=== PATIENT | female | born 1945 | race Caucasian/White ===

== ENCOUNTER 2019-10-28 08:03 | Outpatient (CLI) | payer MEDICARE, OTHER, SELFPAY ==
--- NOTE | ~2019-10-28 | DEXA_ITS ---
Bone Density Report Name: Delma Banerjee Age: 73 Sex: Female Ethnicity: White Date of : 1945 Indication: postmenopausal; parental hip fracture; height loss; hysterectomy; Referring Provider: BETO ALVES Study: Bone densitometry was performed. Exam Date: October 28, 2019 Accession number: [id number] Bone Density: Region BMD T-score Z-score Classification AP Spine (L1-L4) 0.911 -1.2 1.2 Osteopenia Femoral Neck (Left) 0.597 -2.3 -0.2 Osteopenia Total Hip (Left) 0.720 -1.8 0.0 Osteopenia Total Hip Bilateral Avg 0.722 -1.8 0.0 Osteopenia Femoral Neck (Right) 0.543 -2.8 -0.6 Osteoporosis Total Hip (Right) 0.723 -1.8 0.0 Osteopenia World Health Organization criteria for BMD impression classify patients as: Normal (T-score at or above -1.0), Osteopenia (T-score between -1.0 and -2.5), or Osteoporosis (T-score at or below -2.5). 10-year Fracture Risk: FRAX not reported because: Some T-score for Spine Total or Hip Total or Femoral Neck at or below -2.5 Previous Exams: Region Exam Age BMD T-score BMD Change BMD Change Date g/cm2 vs Baseline vs Previous AP Spine(L1-L4) 10/28/2019 73 0.911 -1.2 -0.167(-15.5%) -0.089(-8.9%)* 10/23/2017 71 1.001 -0.4 -0.078(-7.2%)# 0.080(8.7%)* 10/19/2015 69 0.920 -1.2 -0.158(-14.7%) 0.006(0.6%)# 10/14/2013 67 0.915 -1.2 -0.164(-15.2%) -0.043(-4.5%)* 10/04/2011 65 0.958 -0.8 -0.120(-11.2%) -0.120(-11.2%) 09/29/2009 63 1.078 0.3 Total Hip(Left) 10/28/2019 73 0.720 -1.8 -0.244(-25.3%) -0.100(-12.2%) 10/23/2017 71 0.820 -1.0 -0.145(-15.0%) 0.011(1.3%) 10/19/2015 69 0.809 -1.1 -0.155(-16.1%) -0.012(-1.5%)# 10/14/2013 67 0.821 -1.0 -0.143(-14.8%) -0.047(-5.4%)* 10/04/2011 65 0.868 -0.6 -0.097(-10.0%) -0.097(-10.0%) 09/29/2009 63 0.964 0.2 Total Hip(Right) 10/28/2019 73 0.723 -1.8 -0.239(-24.8%) -0.115(-13.7%) 10/23/2017 71 0.838 -0.9 -0.124(-12.9%) 0.044(5.5%)* 10/19/2015 69 0.794 -1.2 -0.168(-17.4%) 0.010(1.3%)# 10/14/2013 67 0.784 -1.3 -0.178(-18.5%) -0.019(-2.4%) 10/04/2011 65 0.803 -1.1 -0.159(-16.5%) -0.159(-16.5%) 09/29/2009 63 0.962 0.2 *Denotes significance at 95% confidence level, LSC for AP Spine = 0.022 g/cm2, LSC for Total Hip = 0.027 g/cm2 Clinical Information Provided by Patient: Parent has had a hip fracture Has used the following medications: Vitamin D, Calcium Has the following medical conditions: Hysterectomy Patient maximum height was 61
--- NOTE | ~2019-10-28 | MM_ITS ---
EXAMINATION: MM screening myah BI w onel HISTORY: Screening mammogram TECHNIQUE: Craniocaudal and mediolateral oblique 3-D tomosynthesis images were obtained and synthetic 2-D images were generated. CAD analysis was submitted and interpreted. COMPARISON: 10/25/2018, 10/23/2017, 10/20/2016 bilateral digital screening mammogram examinations BREAST PARENCHYMAL COMPOSITION: There are scattered areas of fibroglandular density. FINDINGS: There is no evidence of suspicious mass, calcification, or architectural distortion to sugg est malignancy in either breast. There has been no suspicious interval change. IMPRESSION: 1. No mammographic evidence of malignancy. 2. Recommend routine screening mammography in one year. BI-RADS Category 1: Negative Reviewed, dictated and finalized at location A. LE MILL OPERATOR
== END 2019-10-28 08:04 | disposition home or self-care (01) ==
LOC: ANHIMG 08:09
PROVIDERS: PCP Internal Medicine; Visit Provider Internal Medicine
DX: Z12.31 Encounter for screening mammogram for malignant neoplasm of breast (principal); Z78.0 Asymptomatic menopausal state; M85.89 Other specified disorders of bone density and structure, multiple sites; M81.0 Age-related osteoporosis without current pathological fracture
CPT/HCPCS: 77063; 77067; 77080

== ENCOUNTER 2020-11-12 09:17 | Outpatient (CLI) | payer MEDICARE, OTHER, SELFPAY ==
--- NOTE | ~2020-11-12 | MM_ITS ---
EXAMINATION: MM screening myah BI w onel HISTORY: Screening mammogram TECHNIQUE: Craniocaudal and mediolateral oblique 3-D tomosynthesis images were obtained and synthetic 2-D images were generated. CAD analysis was submitted and interpreted. COMPARISON: 10/28/2019, 10/25/2018, 10/23/2017 bilateral digital screening mammogram examinations BREAST PARENCHYMAL COMPOSITION: There are scattered areas of fibroglandular density. FINDINGS: There is no evidence of suspicious mass, calcification, or architectural distortion to sugg est malignancy in either breast. There has been no suspicious interval change. IMPRESSION: 1. No mammographic evidence of malignancy. 2. Recommend routine screening mammography in one year. BI-RADS Category 1: Negative Reviewed, dictated and finalized at location A. ORK CABLER
== END 2020-11-12 09:18 | disposition home or self-care (01) ==
LOC: ANHIMG 09:27
PROVIDERS: PCP Internal Medicine; Visit Provider Internal Medicine
DX: Z12.31 Encounter for screening mammogram for malignant neoplasm of breast (principal)
CPT/HCPCS: 77063; 77067

== ENCOUNTER 2021-12-10 14:43 | Outpatient (CLI) | payer MEDICARE, OTHER, SELFPAY ==
--- NOTE | ~2021-12-10 | MM_ITS ---
EXAMINATION: MM screening myah BI w onel HISTORY: Screening TECHNIQUE: Craniocaudal and mediolateral oblique 3-D tomosynthesis images were obtained and synthetic 2-D images were generated. CAD analysis was submitted and interpreted. COMPARISON: Comparison to multiple prior studies sequentially, with oldest reviewed study dated 10/2016. BREAST PARENCHYMAL COMPOSITION: There are scattered areas of fibroglandular density. FINDINGS: There is no evidence of suspicious mass, calcification, or architectural distortion to sugg est malignancy in either breast. There has been no suspicious interval change. IMPRESSION: 1. No mammographic evidence of malignancy. 2. Recommend routine screening mammography in one year. BI-RADS Category 1: Negative Reviewed, dictated and finalized at location A.
== END 2021-12-10 14:44 | disposition home or self-care (01) ==
LOC: ANHIMG 14:46
PROVIDERS: PCP Internal Medicine; Visit Provider Internal Medicine
DX: Z12.31 Encounter for screening mammogram for malignant neoplasm of breast (principal)
CPT/HCPCS: 77063; 77067

== ENCOUNTER 2023-03-07 08:37 | Outpatient (CLI) | payer MEDICARE, OTHER, SELFPAY ==
--- NOTE | ~2023-03-07 | MM_ITS ---
EXAMINATION: MM screening myah BI w onel HISTORY: Screening mammogram TECHNIQUE: Craniocaudal and mediolateral oblique 3-D tomosynthesis images were obtained and synthetic 2-D images were generated. CAD analysis was submitted and interpreted. COMPARISON: 12/10/2021, 11/12/2020, 10/28/2019 bilateral screening mammogram examinations BREAST PARENCHYMAL COMPOSITION: There are scattered areas of fibroglandular density. FINDINGS: There is no evidence of suspicious mass, calcification, or architectural distortion to sugg est malignancy in either breast. There has been no suspicious interval change. IMPRESSION: 1. No mammographic evidence of malignancy. 2. Recommend routine screening mammography in one year. BI-RADS Category 1: Negative Reviewed, dictated and finalized at location A.
--- NOTE | ~2023-03-07 | DEXA_ITS ---
Bone Density Report Name: IRVIN MARRERO Age: 77 Sex: Female Ethnicity: White Date of : 1945 Indication: osteopenia; monitoring treatment; height loss; prior fracture; hysterectomy; postmenopausal Referring Provider: DELIA SCHWARTZ Study: Bone densitometry was performed. Exam Date: March 07, 2023 Accession number: [id number] Bone Density: Region BMD T-score Z-score Classification AP Spine(L1-L4) 0.984 -0.6 2.1 Normal Femoral Neck (Left) 0.576 -2.5 -0.2 Osteoporosis Total Hip (Left) 0.657 -2.3 -0.3 Osteopenia Femoral Neck (Right) 0.561 -2.6 -0.3 Osteoporosis Total Hip (Right) 0.720 -1.8 0.2 Osteopenia Total Hip Mean 0.689 -2.1 -0.1 Osteopenia World Health Organization criteria for BMD impression classify patients as: Normal (T-score at or above -1.0), Osteopenia (T-score between -1.0 and -2.5), or Osteoporosis (T-score at or below -2.5). 10-year Fracture Risk: FRAX not reported because: Some T-score for Spine Total or Hip Total or Femoral Neck at or below -2.5 Treated for osteoporosis Previous Exams: Region Exam Age BMD T-score BMD Change BMD Change Date g/cm2 vs Baseline vs Previous AP Spine (L1-L4) 03/07/2023 77 0.984 -0.6 0.069 (7.6%)# 0.073 (8.0%)* 10/28/2019 73 0.911 -1.2 -0.003 (-0.4%) -0.089 (-8.9%) 10/23/2017 71 1.001 -0.4 0.086 (9.4%)# 0.080 (8.7%)* 10/19/2015 69 0.920 -1.2 0.006 (0.6%)# 0.006 (0.6%)# 10/14/2013 67 0.915 -1.2 Total Hip(Left) 03/07/2023 77 0.657 -2.3 -0.164 (-20.0% -0.063 (-8.8%) 10/28/2019 73 0.720 -1.8 -0.101 (-12.3% -0.100 (-12.2% 10/23/2017 71 0.820 -1.0 -0.001 (-0.2%) 0.011 (1.3%) 10/19/2015 69 0.809 -1.1 -0.012 (-1.5%) -0.012 (-1.5%) 10/14/2013 67 0.821 -1.0 Total Hip(Right) 03/07/2023 77 0.720 -1.8 -0.063 (-8.1%) -0.003 (-0.4%) 10/28/2019 73 0.723 -1.8 -0.061 (-7.7%) -0.115 (-13.7% 10/23/2017 71 0.838 -0.9 0.054 (6.9%)# 0.044 (5.5%)* 10/19/2015 69 0.794 -1.2 0.010 (1.3%)# 0.010 (1.3%)# 10/14/2013 67 0.784 -1.3 *Denotes significance at 95% confidence level, LSC for AP Spine = 0.022 g/cm2, LSC for Total Hip = 0.027 g/cm2 # Denotes dissimilar scan types or analysis methods Clinical Information Provided by Patient: Has had a low trauma fracture Is being treated for osteoporosis Has used the following medications: Vitamin D, Calcium Has the following medical conditions: Hysterectomy Patient maximum height was 61 Menopause Age: 43 Does not regularly consum
== END 2023-03-07 08:38 | disposition home or self-care (01) ==
LOC: ANHIMG 08:39
PROVIDERS: PCP Family Medicine; Visit Provider Family Medicine
DX: Z12.31 Encounter for screening mammogram for malignant neoplasm of breast (principal); N95.8 Other specified menopausal and perimenopausal disorders; M81.0 Age-related osteoporosis without current pathological fracture; M85.852 Other specified disorders of bone density and structure, left thigh; M85.851 Other specified disorders of bone density and structure, right thigh
CPT/HCPCS: 77063; 77067; 77080

== ENCOUNTER 2024-01-20 09:46 | Outpatient (CLI) | payer MEDICARE, OTHER, SELFPAY ==
--- NOTE | ~2024-01-20 | DEXA_ITS ---
Bone Density Report Name: IRVIN MARRERO Age: 78 Sex: Female Ethnicity: White Date of : 1945 Indication: osteopenia; monitoring treatment; parental hip fracture; height loss; hysterectomy; Referring Provider: DELIA SCHWARTZ Study: Bone densitometry was performed. Exam Date: January 20, 2024 Accession number: [id number] Bone Density: Region BMD T-score Z-score Classification AP Spine(L1-L4) 0.998 -0.4 2.2 Normal Femoral Neck (Left) 0.557 -2.6 -0.3 Osteoporosis Total Hip (Left) 0.708 -1.9 0.1 Osteopenia Femoral Neck (Right) 0.557 -2.6 -0.3 Osteoporosis Total Hip (Right) 0.713 -1.9 0.2 Osteopenia Total Hip Mean 0.711 -1.9 0.2 Osteopenia World Health Organization criteria for BMD impression classify patients as: Normal (T-score at or above -1.0), Osteopenia (T-score between -1.0 and -2.5), or Osteoporosis (T-score at or below -2.5). 10-year Fracture Risk: FRAX not reported because: Some T-score for Spine Total or Hip Total or Femoral Neck at or below -2.5 Treated for osteoporosis Previous Exams: Region Exam Age BMD T-score BMD Change BMD Change Date g/cm2 vs Baseline vs Previous AP Spine (L1-L4) 01/20/2024 78 0.998 -0.4 0.084 (9.2%)* 0.014 (1.5%)# 03/07/2023 77 0.984 -0.6 0.069 (7.6%)# 0.073 (8.0%)* 10/28/2019 73 0.911 -1.2 -0.003 (-0.4%) -0.089 (-8.9%) 10/23/2017 71 1.001 -0.4 0.086 (9.4%)# 0.080 (8.7%)* 10/19/2015 69 0.920 -1.2 0.006 (0.6%)# 0.006 (0.6%)# 10/14/2013 67 0.915 -1.2 Total Hip(Left) 01/20/2024 78 0.708 -1.9 -0.113 (-13.8% 0.051 (7.8%)# 03/07/2023 77 0.657 -2.3 -0.164 (-20.0% -0.063 (-8.8%) 10/28/2019 73 0.720 -1.8 -0.101 (-12.3% -0.100 (-12.2% 10/23/2017 71 0.820 -1.0 -0.001 (-0.2%) 0.011 (1.3%) 10/19/2015 69 0.809 -1.1 -0.012 (-1.5%) -0.012 (-1.5%) 10/14/2013 67 0.821 -1.0 Total Hip(Right) 01/20/2024 78 0.713 -1.9 -0.071 (-9.0%) -0.007 (-1.0%) 03/07/2023 77 0.720 -1.8 -0.063 (-8.1%) -0.003 (-0.4%) 10/28/2019 73 0.723 -1.8 -0.061 (-7.7%) -0.115 (-13.7% 10/23/2017 71 0.838 -0.9 0.054 (6.9%)# 0.044 (5.5%)* 10/19/2015 69 0.794 -1.2 0.010 (1.3%)# 0.010 (1.3%)# 10/14/2013 67 0.784 -1.3 *Denotes significance at 95% confidence level, LSC for AP Spine = 0.022 g/cm2, LSC for Total Hip = 0.027 g/cm2 # Denotes dissimilar scan types or analysis methods Clinical Information Provided by Patient: Parent has had a hip fracture Is being treated for osteopor
== END 2024-01-20 09:47 | disposition home or self-care (01) ==
LOC: ANHIMG 09:53
PROVIDERS: PCP Family Medicine; Visit Provider Family Medicine
DX: N95.8 Other specified menopausal and perimenopausal disorders (principal); M81.0 Age-related osteoporosis without current pathological fracture; M85.852 Other specified disorders of bone density and structure, left thigh; M85.851 Other specified disorders of bone density and structure, right thigh
CPT/HCPCS: 77080

== ENCOUNTER 2024-03-13 13:26 | Outpatient (CLI) | payer MEDICARE, OTHER, SELFPAY ==
--- NOTE | ~2024-03-13 | MM_ITS ---
EXAMINATION: MM screening myah BI w onel HISTORY: Screening mammogram TECHNIQUE: Craniocaudal and mediolateral oblique 3-D tomosynthesis images were obtained and synthetic 2-D images were generated. CAD analysis was submitted and interpreted. COMPARISON: 03/07/2023, 12/10/2021, 11/12/2020 BREAST PARENCHYMAL COMPOSITION:Dense: The breasts are heterogeneously dense, which may obscure small masses. FINDINGS: No suspicious mass, calcification, or architectural distortion are identified in either porfirio ast to suggest malignancy. There has been no suspicious interval change. IMPRESSION: No mammographic evidence of malignancy. Recommend routine screening mammography in one year. BI-RADS Category 1: Negative Reviewed, dictated and finalized at location .
== END 2024-03-13 13:27 | disposition home or self-care (01) ==
LOC: ANHIMG 13:28
PROVIDERS: PCP Family Medicine; Visit Provider Family Medicine
DX: Z12.31 Encounter for screening mammogram for malignant neoplasm of breast (principal)
CPT/HCPCS: 77063; 77067

== ENCOUNTER 2025-04-11 09:38 | Outpatient (CLI) | payer MEDICARE, OTHER, SELFPAY ==
--- NOTE | ~2025-04-11 | MM_ITS ---
EXAMINATION: MM screening myah BI w onel HISTORY: Screening TECHNIQUE: Craniocaudal and mediolateral oblique 3-D tomosynthesis images were obtained and synthetic 2-D images were generated. CAD analysis was submitted and interpreted. COMPARISON: Comparison to multiple prior studies sequentially, with oldest reviewed study dated 03/2019. BREAST PARENCHYMAL COMPOSITION: Not dense: There are scattered areas of fibroglandular density. FINDINGS: There is no evidence of suspicious mass, calcification, or architectural distortion to sugg est malignancy in either breast. There has been no suspicious interval change. IMPRESSION: 1. No mammographic evidence of malignancy. 2. Recommend routine screening mammography in one year. BI-RADS Category 1: Negative Reviewed, dictated and finalized at location A.
--- OUTSIDE RECORDS SUMMARY | 2025-04-11 09:45 | XMS_ITS | Continuity of Care Document ---
Author Organization [facility] Address [address] [place] [address] [place] [address] Phone Care Team Providers Care Clinic Office Manager Name Role Phone Albino Carvajal MD Unavailable Unavailable Advance Directives Directive Yes / No Effective Date File Name No Information Encounters Encounter Description Practice Location Reason(s) For Visit Diagnoses Date Provider Providers Copied on Encounter [facility], [address] [place] [address] [address], [place], [place], [id number], [place] tel:[phone] [address] [facility] No Information Diomedes[address] Posada. [address] [facility], [place], [place], [id number], [place]. tel:[phone] Family History Family Member Type Diagnosis Age At Onset No Information Payers Payer name Insurance type Covered green party ID Authoriza tion(s) No Information Social History Type Description Quantity Date Captured Comments Sex Female Smoking Status No Information Chief Complaint And Reason For Visit No Information Reason For Referral Reason For Referral No Information History Of Present Illness Encounter Date Complaint History Of Prese nt Illness No Information Functional Status Date Functional Assessmen t No Information Instructions Date Instruction Additional Infor mation No Information Assessments Type Assessment Date No Information Patient Care Teams Name Effective Dates (start - stop) Status Members No Information
== END 2025-04-11 09:39 | disposition home or self-care (01) ==
LOC: ANHIMG 09:42
PROVIDERS: PCP Family Medicine; Visit Provider Family Medicine
DX: Z12.31 Encounter for screening mammogram for malignant neoplasm of breast (principal)
CPT/HCPCS: 77063; 77067